=== PATIENT | male | born 2000 | race Caucasian/White ===

== ENCOUNTER 2020-05-06 18:59 | Emergency (ER) | payer MEDICAID, OTHER ==
[~2020-05-06] VITALS: Ht 172.7 cm; Wt 57.2 kg
[2020-05-06 19:31] VITALS: BP 125/73
--- NOTE | 2020-05-06 19:35 | NUR ---
PT WHEELCHAIRED ASSISTED TO BED 1
--- NOTE | 2020-05-06 19:45 | NUR ---
HÉCTOR KILGORE AT BEDSIDE EVALUATING PT.
--- NOTE | 2020-05-06 19:57 | NUR ---
GAVE WORKER'S COMP FORM, PT FILLING OUT WORKER'S COMP FORM.
--- NOTE | 2020-05-06 20:02 | NUR ---
RAD AT BEDSIDE.
--- NOTE | 2020-05-06 20:03 | NUR ---
19 Y/O M PRESENTS TO ED C/O RT ANKLE PAIN S/P FALL AT WORK X 2 DAYS AGO. PT STATES THAT HE FELL ON THE STAIRS, "LADDER LIKE STAIRS," 3 STEPS UP AND TWISTED HIS RT ANKLE. NO DEFORMITIES NOTED. RT ANKLE SWOLLEN. DENIES PAIN AT THIS TIME. PEDAL PULSES PRESENT. CAP REFILL <3 SECONDS. RR EVEN AND UNLABORED. LUNG SOUNDS CLEAR. SKIN INTACT. MHX: WINTERS FELTER SYNDROME, GASTRITIS NKA
--- NOTE | 2020-05-06 20:47 | NUR ---
PTS RIGHT ANKEL WAS ANSHUL WRAPPED. PTS PMSC WNL. PT WAS ALSO GIVEN CRUTCHES. PTS SHOWED GOOD USE OF CRUTCHES.
[2020-05-06 20:55] VITALS: BP 118/76
== END 2020-05-06 20:54 | disposition home or self-care (01) ==
LOC: MED 18:59
DX: S93.401A Sprain of unspecified ligament of right ankle, initial encounter (principal); Q98.4 Klinefelter syndrome, unspecified; Z87.81 Personal history of (healed) traumatic fracture; W19.XXXA Unspecified fall, initial encounter; Y93.89 Activity, other specified; Y92.89 Other specified places as the place of occurrence of the external cause; Y99.8 Other external cause status
CPT/HCPCS: 73610; 73630; 99284; Q0092

== ENCOUNTER 2021-02-11 01:57 | Emergency (ER) | payer OTHER, MEDICAID ==
[~2021-02-11] VITALS: Ht 172.7 cm; Wt 59.0 kg
[2021-02-11 01:58] VITALS: BP 123/79
--- NOTE | 2021-02-11 01:58 | NUR ---
TO BED AMBULATORY
[2021-02-11] MEDS ORDERED: HYDROcodone/APAP 5/325 MG 1 TAB TAB PO ONE (02:20)
--- NOTE | 2021-02-11 02:35 | NUR ---
CT WITH CONTRAST CONSENT OBTAINED.
[2021-02-11 02:38] LABS: BASOPHILS % (AUTO) 0.5 % (0.0-2.0); EOSINOPHILS # (AUTO) 0.2 K/uL (0-0.4); EOSINOPHILS % (AUTO) 2.5 % (0.0-4.0); HEMATOCRIT 44.1 % (36-52); HEMOGLOBIN 14.8 g/dL (12.0-18.0); LYMPHOCYTES # (AUTO) 2.9 K/uL (2.0-11.5); LYMPHOCYTES % (AUTO) 42.7 % (20.5-51.1); MEAN CORPUSCULAR HEMOGLOBIN 30 pg (27-31); MEAN CORPUSCULAR HGB CONC 34 g/dL (33-37); MEAN CORPUSCULAR VOLUME 90.6 fL (80-94); MONOCYTES # (AUTO) 0.5 K/uL (0.8-1.0); MONOCYTES % (AUTO) 7.6 % (1.7-9.3); NEUTROPHILS # (AUTO) 3.1 K/uL (1.8-7.7); NEUTROPHILS % (AUTO) 46.7 % (42.2-75.2); PLATELET COUNT (AUTO) 213 K/uL (140-450); RED BLOOD CELL COUNT(AUTO) 4.87 MIL/uL (4.20-6.10); RED CELL DISTRIBUTION WIDTH 12.4 % (11.6-13.7); WHITE BLOOD COUNT (AUTO) 6.7 K/uL (4.5-11.0)
[2021-02-11 02:52] LABS: ALBUMIN 4.2 g/dL (3.4-5.0); ANION GAP 8.2 (8-16); CARBON DIOXIDE 29.4 mmol/L (21-32); CREATININE 1.1 mg/dL (0.6-1.3); POTASSIUM 3.6 mmol/L (3.5-5.1); TOTAL BILIRUBIN 0.7 mg/dL (0.0-1.0)
--- NOTE | 2021-02-11 03:14 | NUR ---
PT TAKEN TO RAD VIA W.C.
--- NOTE | 2021-02-11 03:48 | NUR ---
PT RETURNED FROM CT VIA W.C.
--- NOTE | 2021-02-11 04:37 | NUR ---
Patient appears to be resting comfortably in bed. Vital Signs within normal limits. Respirations even and unlabored. PROVIDED BLANKET FOR COMFORT.
[2021-02-11] MEDS ORDERED: IBUP-2218 PO (05:03)
[2021-02-11] MEDS ORDERED: CYCL-711 PO (05:03)
[2021-02-11] MEDS ORDERED: ACET-9525 PO (05:05)
[2021-02-11 05:10] VITALS: BP 119/73
--- NOTE | 2021-02-11 05:10 | NUR ---
Patient discharged with v/s stable. Written and verbal after care instructions given and explained. Patient alert, oriented and verbalized understanding of instructions. Ambulatory with steady gait. All questions addressed prior to discharge. ID band removed. Patient advised to follow up with PMD. Rx of NORCO, FLEXERIL, MOTRIN given. Patient educated on indication of medication including possible reaction and side effects. Opportunity to ask questions provided and answered.
== END 2021-02-11 05:10 | disposition home or self-care (01) ==
LOC: MED 01:57
DX: M54.5 Low back pain (principal); M25.571 Pain in right ankle and joints of right foot; V98.8XXA Other specified transport accidents, initial encounter; Y93.89 Activity, other specified; Y92.89 Other specified places as the place of occurrence of the external cause; Y99.8 Other external cause status
CPT/HCPCS: 36415; 70450; 72126; 72128; 72132; 73030; 73610; 80053; 85025; 99285

== ENCOUNTER 2021-09-26 14:38 | Emergency (ER) | payer MEDICAID ==
[~2021-09-26] VITALS: Ht 172.7 cm; Wt 59.0 kg
[~2021-09-26 14:38] MED LIST: ACET-9525 PO; CYCL-711 PO; IBUP-2218 PO
[2021-09-26 14:42] VITALS: BP 133/63
--- NOTE | 2021-09-26 14:49 | NUR ---
wheelchair assist to bed 12
[2021-09-26] MEDS ORDERED: ALUMINUM HYD/MAG/SIMETHICONE 30 ML UDC PO ONE (15:05)
[2021-09-26] MEDS ORDERED: ONDANSETRON 4 MG ODT PO ONE (15:05)
[2021-09-26] MEDS ORDERED: FAMOTIDINE 20 MG TAB PO ONE (15:05)
[2021-09-26] MEDS ORDERED: DICYCLOMINE 10 MG CAP PO ONE (15:05)
--- NOTE | 2021-09-26 15:22 | NUR ---
pt c/o diffuse abdominal pain with n/v since this am. medicated per order.
[2021-09-26] MEDS ORDERED: METOCLOPRAMIDE 10 MG/2 ML INJ VIAL IVP ONE (18:00)
[2021-09-26] MEDS ORDERED: diphenhydrAMINE 50 MG/ML VIAL IVP ONE (18:00)
[2021-09-26] MEDS ORDERED: KETOROLAC 15 MG/ML VIAL IVP ONE (18:00)
--- NOTE | 2021-09-26 18:46 | NUR ---
pt assisted to bathroom and back to [facility]
[2021-09-26] MEDS ORDERED: ONDA-188 PO (19:17)
--- NOTE | 2021-09-26 19:28 | NUR ---
received pt sleeping in bed. arousable. bed lock and low, side rails up. call light within reach.
[2021-09-26 19:48] VITALS: BP 155/59
--- NOTE | 2021-09-26 19:50 | NUR ---
20 GUAGE IV ON LEFT ARM DISCONTINUED. NO SIGNS OF INFLITRATION OR PHLEBITIS. DRESSING APPLIED.
== END 2021-09-26 19:49 | disposition home or self-care (01) ==
LOC: MED 14:38
DX: A09 Infectious gastroenteritis and colitis, unspecified (principal); Z79.899 Other long term (current) drug therapy
CPT/HCPCS: 96374; 96375; 99284; J1200; J1885; J2765; Q0162

== ENCOUNTER 2022-05-02 13:44 | Emergency (ER) | payer MEDICAID ==
[~2022-05-02] VITALS: Ht 172.7 cm; Wt 58.1 kg
[~2022-05-02 13:44] MED LIST changes: +ONDA-188 PO
--- NOTE | 2022-05-02 14:29 | NUR ---
CALLED X 1. NO SHOW.
[2022-05-02 14:30] VITALS: BP 135/42
[2022-05-02 15:53] LABS: BASOPHILS % (AUTO) 0.2 % (0.0-2.0); EOSINOPHILS % (AUTO) 0.5 % (0.0-4.0); HEMATOCRIT 41.9 % (36-52); HEMOGLOBIN 14.5 g/dL (12.0-18.0); LYMPHOCYTES # (AUTO) 5.6 K/uL (2.0-11.5); LYMPHOCYTES % (AUTO) 69.6 % (20.5-51.1); MEAN CORPUSCULAR HEMOGLOBIN 29 pg (27-31); MEAN CORPUSCULAR HGB CONC 35 g/dL (33-37); MEAN CORPUSCULAR VOLUME 84.3 fL (80-94); MONOCYTES # (AUTO) 0.6 K/uL (0.8-1.0); NEUTROPHILS # (AUTO) 1.8 K/uL (1.8-7.7); NEUTROPHILS % (AUTO) 22.7 % (42.2-75.2); PLATELET COUNT (AUTO) 199 K/uL (140-450); RED BLOOD CELL COUNT(AUTO) 4.97 MIL/uL (4.20-6.10); RED CELL DISTRIBUTION WIDTH 12.8 % (11.6-13.7); WHITE BLOOD COUNT (AUTO) 8.1 K/uL (4.8-10.8)
[2022-05-02 17:05] LABS: ALBUMIN 3.4 g/dL (3.4-5.0); ANION GAP 11.9 (8-16); CARBON DIOXIDE 26.3 mmol/L (21-32); CREATININE 0.9 mg/dL (0.6-1.3); POTASSIUM 4.2 mmol/L (3.5-5.1); TOTAL BILIRUBIN 0.4 mg/dL (0.0-1.0)
--- NOTE | 2022-05-02 18:32 | NUR ---
HÉCTOR KILGORE explained results and treatment plans.
[2022-05-02] MEDS ORDERED: AMOX500C25 PO (18:35)
[2022-05-02 18:41] VITALS: BP 128/62
== END 2022-05-02 18:41 | disposition home or self-care (01) ==
LOC: MED 13:44
DX: R59.1 Generalized enlarged lymph nodes (principal)
CPT/HCPCS: 36415; 70498; 80053; 85025; 99285; Q9967